=== PATIENT | male | born 1940 | race Caucasian/White ===

== ENCOUNTER → 2018-10-02 | Outpatient (CLI) | payer OTHER ==
[2017-01-06 11:00] VITALS: BP 142/93
[~2018-10-02] MED LIST: ALBU2.5V8 INH; ALLO100T PO; AMLO10TA8 PO; ASPI-482 PO; BUPR150T11 PO; BUPR150T6 PO; CINN500C2 PO; CONTRAST GIVEN. MC PRN; FERR325T14 PO; FOLI1TAB16 PO; GABA300C18 PO; HYDR-3164 PO; INDO25CA5 PO; IOHEXOL 240 MG/ML 50ML VIAL. PO ONE; IOHEXOL 300 MG/ML 100ML VIAL. IV ONE; LISI-130 PO; LORA0.5T PO; METF500T16 PO; METO50TA6 PO; NYST15CR TP; OLOD4MIS2 IH; SIMV10TA3 PO; TAMS0.4C2 PO
[2018-10-02 16:13] LABS: BASO # 0.1 x10^3/uL (0.0-0.2); BASO % 1 % (0-3); EOS # 0.3 x10^3/uL (0.0-0.7); EOS % 3 % (0-3); HEMATOCRIT 39.8 % (39.0-53.0); HEMOGLOBIN 13.6 g/dL (13.0-17.5); LYMPH # 2.4 x10^3/uL (1.0-4.8); LYMPH % 24 % (24-48); MEAN CORPUSCULAR HEMOGLOBIN 30 pg (25-35); MEAN CORPUSCULAR HGB CONC 34 g/dL (31-37); MEAN CORPUSCULAR VOLUME 87 fL (79-100); MONO # 0.6 x10^3/uL (0.0-1.1); MONO % 6 % (0-9); NEUT # 6.6 x10^3uL (1.8-7.7); NEUT % 66 % (31-73); PLATELET COUNT 242 x10^3/uL (140-400); RED BLOOD COUNT 4.56 x10^6/uL (4.30-5.70); WHITE BLOOD COUNT 9.9 x10^3/uL (4.0-11.0)
[2018-10-02 16:27] LABS: ALBUMIN 3.7 g/dL (3.4-5.0); CALCIUM 8.9 mg/dL (8.5-10.1); CREATININE 1.1 mg/dL (0.7-1.3); GFR 64.7; POTASSIUM 3.1 mmol/L (3.5-5.1); TOTAL BILIRUBIN 0.6 mg/dL (0.2-1.0); TOTAL PROTEIN 7.3 g/dL (6.4-8.2)
--- NOTE | 2018-10-02 16:32 | KCIC ---
CT ABD PELV W/ORAL IV CONTRAST Indication: Abnormal colonoscopy. Tumor identified. Colon cancer in 2017. Decreased appetite for one month. Constipation. Colon resection.. Exposure: One or more of the following individualized dose reduction techniques were utilized for this examination: 1. Automated exposure control 2. Adjustment of the mA and/or kV according to patient size 3. Use of iterative reconstruction technique. Technique: Intravenous contrast was given. Oral contrast was given. Comparison: None FINDINGS: Ovoid soft tissue nodule in the subcutaneous fat just posterior to the right paraspinal tissue at the level of the lower thoracic spine measuring 2.5 x 1.3 cm. Nonspecific but metastatic nodule is possible. Smaller dense nodule just adjacent to this one. Lung bases are clear. Liver is unremarkable. Spleen is borderline enlarged, 12.5 cm. Pancreas unremarkable. No adrenal mass. Kidneys demonstrate symmetric enhancement without hydronephrosis. No definite renal mass. Tiny calcification within the posterior gallbladder measuring only 2 mm, suspicious for small gallstone. Gallbladder is not distended. Aorta is calcified and ectatic, no evidence of aneurysm. No significant lymph node enlargement is identified. No significant small bowel distention. There are apparent anastomotic sutures of the colon, at the ileocolic junction. There is irregular wall thickening of the colon here with what appears to be an eccentric mass measuring at least 3 cm in diameter. There is also irregular wall thickening extending into the ileum involving roughly the distal 15 cm. There also is wall thickening extending into the more distal colon, gradually diminishing to the level of the descending colon. Mild wall thickening of the sigmoid colon without pericolonic stranding. Colonic diverticulosis. No evidence of pneumoperitoneum or ascites. Urinary bladder is not well distended. Prostate gland measures about 3.8 cm wide. Degenerative spondylosis of the spine. Minimal retrolisthesis of L5 on S1. Small fat-containing umbilical hernia. Small area of subcutaneous density in the posterior right gluteal region measuring 15 mm likely an area of fibrosis or scarring, this does not have a masslike appearance. No aggressive bone destruction. IMPRESSION: 1. Abnormal irregular wall thickening of the proximal colon with an apparent mass, presumably new or recurrent colon cancer. Wall thickening extending through the distal ileum could be inflammatory or neoplastic spread. There is also some more nonspecific wall thickening of the more distal colon, possibly related to nondistention, inflammatory or related to neoplasm. 2. Small subcutaneous nodules measuring up to 25 x 13 mm posterior to the right paraspinal tissues, at the approximate T11 level. 3. Borderline splenomegaly. 4. Probable tiny gallstone. Electronically signed by: Allan Andrade MD (10/02/2018 4:30 PM) [id number]
== END | disposition home or self-care (01) ==
LOC: KCIC CT 13:47
PROVIDERS: ATTEND Surgery
DX: K57.30 Diverticulosis of large intestine without perforation or abscess without bleeding (principal); K42.9 Umbilical hernia without obstruction or gangrene; K82.8 Other specified diseases of gallbladder; I70.0 Atherosclerosis of aorta; I77.819 Aortic ectasia, unspecified site; M47.819 Spondylosis without myelopathy or radiculopathy, site unspecified; M43.17 Spondylolisthesis, lumbosacral region; R22.9 Localized swelling, mass and lump, unspecified; D49.0 Neoplasm of unspecified behavior of digestive system; K59.00 Constipation, unspecified; J44.9 Chronic obstructive pulmonary disease, unspecified; I10 Essential (primary) hypertension; F17.200 Nicotine dependence, unspecified, uncomplicated; E11.9 Type 2 diabetes mellitus without complications
CPT/HCPCS: 36415; 74177; 80053; 82378; 82565; 85025; Q9966; Q9967